=== PATIENT | female | born 1965 | race Caucasian/White ===

== ENCOUNTER 2018-12-29 15:13 | Emergency (ER) | payer OTHER ==
--- NOTE | 2018-12-29 15:38 | PDOC ---
Rapid Medical Evaluation Time Seen by Provider: 12/29/18 15:36 Medical Evaluation: Allergies Allergy/AdvReac Type Severity Reaction Status Date / Time No Known Allergies Allergy Verified 12/29/18 15:34 12/29/18 15:36 I have performed a brief in-person evaluation of this patient. The patient presents with a chief complaint of headache. Patient reports accidentally hit by door in her head yesterday, with no loc. Complaining of headache and blurred vision Pertinent physical exam finding: NAD HEENT: +contusion to forehead, lungs: even and unlabored breathing I have ordered the following: head ct The patient will procedd to the ED for further evaluation. Discharge Disposition - Diagnosis Minor head injury Qualifiers: Encounter type: initial encounter Qualified Code(s): S09.90XA - Unspecified injury of head, initial encounter - Referrals - Patient Instructions - Post Discharge Activity
[2018-12-29 15:39] VITALS: BP 110/75; PULSE 83; TEMP 97.5; BMI 26.4
--- NOTE | 2018-12-29 16:44 | PDOC ---
History of Present Illness - General Chief Complaint: Injury Stated Complaint: HIT IN THE FACE W/ DOOR Time Seen by Provider: 12/29/18 15:36 History Source: Patient Exam Limitations: No Limitations Past History - Travel Traveled outside of the country in the last 30 days: No Close contact w/someone who was outside of country & ill: No - Past Medical History Allergies/Adverse Reactions: Allergies Allergy/AdvReac Type Severity Reaction Status Date / Time No Known Allergies Allergy Verified 12/29/18 15:38 Home Medications: Ambulatory Orders Erythromycin 0.5% Eye Ointment [Erythromycin 0.5% Eye Ointment -] 1 applic OS TID #1 tube 12/29/18 Ibuprofen 600 mg PO Q6H #30 tablet 12/29/18 COPD: No CHF: No - Immunization History Immunization Up to Date: Yes - Suicide/Smoking/Psychosocial Hx Smoking History: Never smoked Information on smoking cessation initiated: No Hx Alcohol Use: No Drug/Substance Use Hx: No Review of Systems - Review of Systems Able to Perform ROS?: Yes Comments:: 12/29/18 16:40 CONSTITUTIONAL: Absent: fever, chills, diaphoresis, generalized weakness, malaise, loss of appetite HEENT: Present: blurred vision Absent: rhinorrhea, nasal congestion, throat pain, throat swelling, difficulty swallowing, mouth swelling, ear pain, eye pain CARDIOVASCULAR: Absent: chest pain, loss of consciousness, palpitations, irregular heart rate, peripheral edema RESPIRATORY: Absent: cough, shortness of breath, dyspnea with exertion, orthopnea, wheezing, stridor, hemoptysis GASTROINTESTINAL: Absent: abdominal pain, abdominal distension, nausea, vomiting, diarrhea, constipation, melena, hematochezia GENITOURINARY: Absent: dysuria, frequency, urgency, hesitancy, hematuria, flank pain, genital pain MUSCULOSKELETAL: Absent: myalgia, arthralgia, joint swelling SKIN: Present: bruise Absent: rash, itching, pallor HEMATOLOGIC/IMMUNOLOGIC: Absent: easy bleeding, easy bruising, lymphadenopathy, frequent infections ENDOCRINE: Absent: unexplained weight gain, unexplained weight loss, heat intolerance, cold intolerance NEUROLOGIC: Absent: headache, focal weakness or paresthesias, dizziness, unsteady gait, seizure, mental status changes, bladder or bowel incontinence PSYCHIATRIC: Absent: anxiety, depression, suicidal or homicidal ideation, hallucinations. Is the patient limited Ivorian proficient: No *Physical Exam - Vital Signs Last Vital Signs Temp Pulse Resp BP Pulse Ox 97.5 F L 83 16 110/75 99 12/29/18 15:34 12/29/18 15:34 12/29/18 15:34 12/29/18 15:34 12/29/18 15:34 - Physical Exam Comments: 12/29/18 17:14 GENERAL: Well developed, well nourished. Awake and alert. No acute distress. HEENT: Normocephalic, atraumatic. PERRLA, EOMI. No conjunctival pallor. Sclera are non- icteric. Moist mucous membranes. Oropharynx is clear. Stye present to the L upper eye lid NECK: Supple. Full ROM. No JVD. Carotid pulses 2+ and symmetric, without bruits. No thyromegaly. No lymphadenopathy. SKIN: Bruise present over midline forehead Warm and dry. Normal capillary refill. No rashes. No jaundice. NEUROLOGICAL: Alert, awake, appropriate. Cranial nerves 2-12 intact. No deficits to light touch and temperature in face, upper extremities and lower extremities. No motor deficits in the in face, upper extremities and lower extremities. Normoreflexic in the upper and lower extremities. Normal speech. Toes are down- going bilaterally. Gait is normal without ataxia. PSYCHIATRIC: Cooperative. Good eye contact. Appropriate mood and affect. Medical Decision Making - Medical Decision Making 12/29/18 17:20 The patient is a 53-year-old female with no past medical history who presents to the ER for evaluation of a bruise to her forehead. Patient states she was hit head with a door yesterday. She has an associated headache. Denies visual changes, lightheadedness, dizziness and loss of consciousness. She has not taken any medication for her pain. She also states she has a stye on her L upper eye. A/P: Hematoma, stye to L eye On exam patient is neurologically intact with no focal findings. Head CT ordered from [facility] is negative for bleed, ischema Motrin given for headache with relief of symptoms after CT read back Pt with a stye to the L eye, will send erythromycin ointment Will dc home at this time with supportive therapy and PCP follow up I discussed the physical exam findings, ancillary test results and final diagnoses with the patient. I answered all of the patient's questions. The patient was satisfied with the care received and felt comfortable with the discharge plan and treatment plan. The Patient agrees to follow up with the primary care physician/specialist within 24-72 hours. Return precautions were given. *DC/Admit/Observation/Transfer Diagnosis at time of Disposition: Hematoma Stye external Qualifiers: Laterality: left Eyelid: upper Qualified Code(s): H00.014 - Hordeolum externum left upper eyelid - Discharge Dispostion Disposition: HOME Condition at time of disposition: Stable Decision to Admit order: No - Prescriptions Prescriptions: Erythromycin 0.5% Eye Ointment [Erythromycin 0.5% Eye Ointment -] 1 applic OS TID #1 tube Ibuprofen 600 mg PO Q6H #30 tablet - Referrals Referrals: Fredo Palm MD [Primary Care Provider] - - Patient Instructions Printed Discharge Instructions: DI for Hordeolum, DI for Hematoma (Bruise) Additional Instructions: You were evaluated for your stye today and your headache. Your head CT is normal. There are no broken bones or bleeds. You may take Motrin 600 mg every 6 hours as needed for pain. Use the erythromycin ointment 3 times a day to the affected eyelid If your headaches continue please follow-up with neurology. A referral has been provided for you. Return to the ER for any new or worsening symptoms. - Post Discharge Activity Forms/Work/School Notes: Back to Work
[2018-12-29] MEDS ORDERED: ACETAMINOPHEN 650 MG/20.3 ML ORAL SOLUTION (CUPS) PO ONE (16:59)
[2018-12-29] MEDS ORDERED: ACETAMINOPHEN 325 MG TABLET (FP) ONE (17:00)
[2018-12-29] MEDS ORDERED: ACETAMINOPHEN 325 MG TABLET (FP) PO ONE (17:01)
== END 2018-12-29 17:36 | disposition home or self-care (01) ==
LOC: JERFT 15:13
PROC: 4A07X0Z Measurement of Visual Acuity, External Approach (ICD-10-PCS; principal; 2018-12-29)
DX: S00.83XA Contusion of other part of head, initial encounter (principal); H00.014 Hordeolum externum left upper eyelid; W22.8XXA Striking against or struck by other objects, initial encounter; Y93.89 Activity, other specified; Y92.89 Other specified places as the place of occurrence of the external cause; Y99.8 Other external cause status
CPT/HCPCS: 70450-TC; 99281-25

== ENCOUNTER → 2020-07-11 | Day surgery (SDC) | payer OTHER | END | disposition home or self-care (01) | LOC: JRADIR 05:29 | PROVIDERS: ATTEND Internal Medicine Endocrinology, Diabetes & Metabolism | PROC: 0G9G3ZX Drainage of Left Thyroid Gland Lobe, Percutaneous Approach, Diagnostic (ICD-10-PCS; principal; 2020-07-11) | DX: E04.1 Nontoxic single thyroid nodule (principal) | CPT/HCPCS: 76942; 88173; 88305-TC ==